=== PATIENT | female | born 1955 | race Hispanic/Latino ===

== ENCOUNTER 2020-11-30 17:52 | Emergency (ER) | payer MEDICARE ==
[~2020-11-30] VITALS: Ht 154.9 cm; Wt 72.1 kg
[~2020-11-30 17:52] MED LIST: ALEVE PO; ERGO400C PO; FLUO20CA30 GT; FOLI0.8T3 PO; HUMALOG SQ; INSU100V12 SQ; LEVO125T11 PO; METH25VI11 IJ
[2020-11-30 17:54] VITALS: BP 133/68
[2020-11-30] MEDS ORDERED: ACETAMINOPHEN 500 MG TABLET PO ONE (18:45)
[2020-11-30] MEDS ORDERED: ACETAMINOPHEN 500 MG TABLET ONE (20:12)
[2020-11-30 20:25] VITALS: BP 145/86
[2020-11-30] MEDS ORDERED: ACET-66 PO (22:08)
[2020-11-30] MEDS ORDERED: IBUP-2070 PO (22:08)
[2020-11-30 22:33] VITALS: BP 141/82
== END 2020-11-30 22:36 | disposition home or self-care (01) ==
LOC: EDH 17:52
DX: S52.121A Displaced fracture of head of right radius, initial encounter for closed fracture (principal); S80.01XA Contusion of right knee, initial encounter; S09.90XA Unspecified injury of head, initial encounter; M54.2 Cervicalgia; E11.9 Type 2 diabetes mellitus without complications; M19.90 Unspecified osteoarthritis, unspecified site; E07.9 Disorder of thyroid, unspecified; Z98.51 Tubal ligation status; Z98.890 Other specified postprocedural states; Z79.4 Long term (current) use of insulin; Z79.899 Other long term (current) drug therapy; W18.39XA Other fall on same level, initial encounter; Y93.89 Activity, other specified; Y92.89 Other specified places as the place of occurrence of the external cause; Y99.8 Other external cause status
CPT/HCPCS: 29105; 70450; 72125; 73070; 73562